=== PATIENT | male | born 1970 | race Caucasian/White ===

== ENCOUNTER → 2017-05-05 | Outpatient (REF) ==
[2017-05-05 09:49] LABS: MEAN CORPUSCULAR HEMOGLOBIN 30.5 pg (27.0-33.0); MEAN CORPUSCULAR HGB CONC 34.4 g/dl (32.0-36.5); MEAN CORPUSCULAR VOLUME 88.5 fl (80.0-96.0); RED CELL DISTRIBUTION WIDTH 12.9 % (11.5-14.5)
[2017-05-05 10:18] LABS: ALBUMIN 3.8 GM/DL (3.2-5.2); ALBUMIN/GLOBULIN RATIO 1.03 (1.00-1.93); ALKALINE PHOSPHATASE 80 U/L (45-117); ALT/SGPT 34 U/L (12-78); ANION GAP 6 MEQ/L (8-16); AST/SGOT 29 U/L (15-37); BILIRUBIN,TOTAL 0.9 MG/DL (0.2-1.0); BLOOD UREA NITROGEN 22 MG/DL (7-18); CARBON DIOXIDE LEVEL 29 MEQ/L (21-32); CHLORIDE LEVEL 105 MEQ/L (98-107); CHOLESTEROL LEVEL 208 MG/DL (<200); CREATININE FOR GFR 1.28 MG/DL (0.70-1.30); GLOMERULAR FILTRATION RATE > 60.0 (>60); GLUCOSE, FASTING 98 MG/DL (70-105); POTASSIUM SERUM 4.7 MEQ/L (3.5-5.1); SODIUM LEVEL 140 MEQ/L (136-145); TOTAL PROTEIN 7.5 GM/DL (6.4-8.2); TRIGLYCERIDES LEVEL 100 MG/DL (<150)
--- NOTE | 2017-05-06 05:07 | REP ---
Clinical: Annual employee health requirement . Comparison: 05/01/2016 . Technique: PA and lateral. Findings: The mediastinum and cardiac silhouette are normal. The lung edmonds are clear and without acute consolidation, effusion, or pneumothorax. The skeletal structures are intact and normal. Impression: 1. No acute cardiopulmonary process. Signed by Zach Goldberg MD 05/06/2017 04:58 A
== END ==
LOC: M LAB 08:35
PROVIDERS: ATTEND Family Medicine
DX: Z02.9 Encounter for administrative examinations, unspecified (principal)

== ENCOUNTER → 2018-05-08 | Outpatient (REF) ==
[2018-05-08 10:54] LABS: HEMATOCRIT 43.5 % (42.0-52.0); HEMOGLOBIN 15.2 g/dl (13.5-17.5); MEAN CORPUSCULAR HEMOGLOBIN 30.4 pg (27.0-33.0); MEAN CORPUSCULAR HGB CONC 34.9 g/dl (32.0-36.5); PLATELET COUNT, AUTOMATED 201 10^3/uL (150-450); RED CELL DISTRIBUTION WIDTH 12.6 % (11.5-14.5); WHITE BLOOD COUNT 8.4 10^3/uL (4.0-10.0)
[2018-05-08 11:18] LABS: ANION GAP 6 MEQ/L (8-16); BLOOD UREA NITROGEN 18 MG/DL (7-18); CALCIUM LEVEL 8.8 MG/DL (8.5-10.1); CARBON DIOXIDE LEVEL 32 MEQ/L (21-32); CHLORIDE LEVEL 107 MEQ/L (98-107); CHOLESTEROL LEVEL 211 MG/DL (<200); CHOLESTEROL RISK RATIO 4.137 (<5); CREATININE FOR GFR 1.24 MG/DL (0.70-1.30); GLOMERULAR FILTRATION RATE > 60.0 (>60); GLUCOSE, FASTING 99 MG/DL (70-100); HDL CHOLESTEROL 51 MG/DL (>40); LDL CHOLESTEROL 134 MG/DL (<100); NON-HDL-C 160 MG/DL; POTASSIUM SERUM 4.7 MEQ/L (3.5-5.1); PROSTATIC SPECIFIC AG MONITOR 1.71 NG/ML (< 4.0); SODIUM LEVEL 145 MEQ/L (136-145); TRIGLYCERIDES LEVEL 129 MG/DL (<150)
== END ==
LOC: M LAB 10:21
DX: Z00.00 Encounter for general adult medical examination without abnormal findings (principal)

== ENCOUNTER 2018-10-22 02:33 | Emergency (ER) | payer BC ==
[~2018-10-22] VITALS: Ht 193 cm; Wt 120.5 kg
[2018-10-22 02:34] VITALS: BP 139/81
[2018-10-22] MEDS ORDERED: guaiFENesin ER 600 MG TAB PO ONE (04:45)
== END 2018-10-22 05:00 | disposition home or self-care (01) ==
LOC: M ED 02:33
DX: J06.9 Acute upper respiratory infection, unspecified (principal)

== ENCOUNTER → 2018-10-23 | Outpatient (REF) | LOC: M LAB 14:35 | PROVIDERS: ATTEND Nurse Practitioner Adult Health | DX: Z00.00 Encounter for general adult medical examination without abnormal findings (principal) ==

== ENCOUNTER 2019-04-06 08:51 | Emergency (ER) | payer OTHER, BC ==
[~2019-04-06] VITALS: Ht 190.5 cm; Wt 111.4 kg
[2019-04-06] MEDS ORDERED: FLUV100T2 PO (09:02)
[2019-04-06] MEDS ORDERED: FLON1SPR NARES (09:02)
[2019-04-06] MEDS ORDERED: KETOROLAC 60 MG/2 ML VIAL (J1885) IM ONE (09:45)
--- NOTE | 2019-04-06 10:49 | REP ---
LUMBOSACRAL SPINE: Five views lumbosacral spine performed. There is mild compression and deformity of T12, which is unchanged since the prior chest radiograph 05/08/2018. There is no acute fracture or dislocation. Lumbar vertebral bodies are normal in height and are well-aligned. There is normal lumbar lordosis. There is no spondylolysis or spondylolisthesis. Disc spaces are well preserved. Posterior elements are intact. IMPRESSION: No acute fracture or dislocation. Old stable compression deformity of T12. Electronically Signed by Sarmad Gutiérrez MD 04/07/2019 04:40 P
[2019-04-06] MEDS ORDERED: NAPR-837 PO (12:38)
[2019-04-06 12:51] VITALS: BP 137/82
== END 2019-04-06 12:52 | disposition home or self-care (01) ==
LOC: M ED 08:51
DX: S30.0XXA Contusion of lower back and pelvis, initial encounter (principal); W10.8XXA Fall (on) (from) other stairs and steps, initial encounter; Y92.89 Other specified places as the place of occurrence of the external cause; Y99.0 Civilian activity done for income or pay; E78.5 Hyperlipidemia, unspecified
CPT/HCPCS: 72110; 96372; 99284; J1885

== ENCOUNTER → 2019-05-06 | Outpatient (REF) ==
[~2019-05-06] MED LIST: FLON1SPR NARES; FLUV100T2 PO; NAPR-837 PO
[2019-05-06 08:48] LABS: HEMOGLOBIN 15.1 g/dl (13.5-17.5); MEAN CORPUSCULAR HEMOGLOBIN 30.9 pg (27.0-33.0); MEAN CORPUSCULAR HGB CONC 34.3 g/dl (32.0-36.5); PLATELET COUNT, AUTOMATED 185 10^3/uL (150-450); RED BLOOD COUNT 4.89 10^6/uL (4.30-6.10); WHITE BLOOD COUNT 6.6 10^3/uL (4.0-10.0)
[2019-05-06 09:13] LABS: ALBUMIN 3.6 GM/DL (3.2-5.2); BILIRUBIN,TOTAL 0.6 MG/DL (0.2-1.0); CALCIUM LEVEL 8.9 MG/DL (8.5-10.1); CHOLESTEROL RISK RATIO 3.267 (<5); CREATININE FOR GFR 1.54 MG/DL (0.70-1.30); GLOMERULAR FILTRATION RATE 51.2 (>56); POTASSIUM SERUM 4.2 MEQ/L (3.5-5.1); TOTAL PROTEIN 6.9 GM/DL (6.4-8.2)
--- NOTE | 2019-05-06 12:51 | ECGEPIP ---
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
== END ==
LOC: M LAB 08:21
PROVIDERS: ATTEND Family Medicine
DX: Z00.00 Encounter for general adult medical examination without abnormal findings (principal)

== ENCOUNTER → 2019-05-19 | Outpatient (RCR) | payer OTHER | LOC: M PT 05-11 07:37 | PROVIDERS: ATTEND Physician Assistant | DX: S30.0XXD Contusion of lower back and pelvis, subsequent encounter (principal); X58.XXXD Exposure to other specified factors, subsequent encounter ==

== ENCOUNTER 2019-06-15 07:00 | Outpatient (RCR) | payer OTHER | END 2019-06-18 | LOC: M PT 07:00 | PROVIDERS: ATTEND Physician Assistant | DX: Z47.89 Encounter for other orthopedic aftercare (principal) ==

== ENCOUNTER 2019-07-06 07:00 | Outpatient (RCR) | payer OTHER | END 2019-07-19 | LOC: M PT 07:00 | PROVIDERS: ATTEND Physician Assistant | DX: S30.0XXD Contusion of lower back and pelvis, subsequent encounter (principal); X58.XXXD Exposure to other specified factors, subsequent encounter ==

== ENCOUNTER 2019-08-18 07:00 | Outpatient (RCR) | payer OTHER | END 2019-08-19 | LOC: M PT 07:00 | PROVIDERS: ATTEND Orthopaedic Surgery | DX: Z47.89 Encounter for other orthopedic aftercare (principal) ==

== ENCOUNTER 2019-09-15 07:00 | Outpatient (RCR) | payer OTHER | END 2019-09-17 | LOC: M PT 07:00 | PROVIDERS: ATTEND Orthopaedic Surgery | DX: Z47.89 Encounter for other orthopedic aftercare (principal) ==

== ENCOUNTER → 2020-05-12 | Outpatient (REF) ==
[2020-05-12 12:45] LABS: HEMATOCRIT 46.1 % (42.0-52.0); HEMOGLOBIN 15.6 g/dl (13.5-17.5); MEAN CORPUSCULAR HEMOGLOBIN 29.9 pg (27.0-33.0); MEAN CORPUSCULAR HGB CONC 33.8 g/dl (32.0-36.5); MEAN CORPUSCULAR VOLUME 88.5 fl (80.0-96.0); PLATELET COUNT, AUTOMATED 204 10^3/uL (150-450); RED BLOOD COUNT 5.21 10^6/uL (4.30-6.10); WHITE BLOOD COUNT 6.8 10^3/uL (4.0-10.0)
[2020-05-12 13:06] LABS: BLOOD UREA NITROGEN 17 MG/DL (7-18); CARBON DIOXIDE LEVEL 30 MEQ/L (21-32); CHLORIDE LEVEL 107 MEQ/L (98-107); CHOLESTEROL LEVEL 219 MG/DL (<200); CHOLESTEROL RISK RATIO 3.842 (<5); CREATININE FOR GFR 1.31 MG/DL (0.70-1.30); GLOMERULAR FILTRATION RATE > 60.0 (>56); GLUCOSE, FASTING 100 MG/DL (70-100); HDL CHOLESTEROL 57 MG/DL (>40); LDL CHOLESTEROL 146 MG/DL (<100); NON-HDL-C 162 MG/DL; POTASSIUM SERUM 4.5 MEQ/L (3.5-5.1); PROSTATIC SPECIFIC AG MONITOR 2.59 NG/ML (< 4.00); SODIUM LEVEL 140 MEQ/L (136-145); TRIGLYCERIDES LEVEL 79 MG/DL (<150)
--- NOTE | 2020-05-12 14:23 | ECGEPIP ---
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
== END ==
LOC: M LAB 11:53
PROVIDERS: ATTEND Nurse Practitioner Adult Health
DX: Z00.00 Encounter for general adult medical examination without abnormal findings (principal)

== ENCOUNTER → 2020-09-30 | Outpatient (CLI) | payer OTHER | LOC: M LABSMTC 08:20 | PROVIDERS: ATTEND Anesthesiology | DX: Z01.812 Encounter for preprocedural laboratory examination (principal); Z20.822 Contact with and (suspected) exposure to COVID-19 ==

== ENCOUNTER 2020-10-05 09:31 | Day surgery (SDC) | payer BC ==
[~2020-10-05] VITALS: Ht 193 cm; Wt 124.2 kg
[~2020-10-05 09:31] MED LIST changes: +NS 1,000 ML IV ONE
[2020-10-05] MEDS ORDERED: LIDOCAINE 2% 100MG/5ML SDV (FOR ANES.) As Ordered ONE (11:51)
[2020-10-05] MEDS ORDERED: propofoL 500 MG/50 ML VIAL As Ordered ONE (11:51)
--- NOTE | 2020-10-05 12:19 | ROOR ---
Patient Name: Shayan Antony Procedure Date: 10/05/2020 11:44 AM Date of : 1970 Age: 50 Room: [facility] Gender: Male Note Status: Finalized Procedure: Colonoscopy Indications: Screening for colorectal malignant neoplasm Providers: Hi Kingsley MD Referring MD: Mane Moya MD Requesting Provider: Medicines: Monitored Anesthesia Care Complications: No immediate complications. Procedure: Pre-Anesthesia Assessment: - Prior to the procedure, a History and Physical was performed, and patient medications and allergies were reviewed. The patient is competent. The risks and benefits of the procedure and the sedation options and risks were discussed with the patient. All questions were answered and informed consent was obtained. Patient identification and proposed procedure were verified by the physician, the nurse and the anesthesiologist in the procedure room. Mental Status Examination: alert and oriented. Airway Examination: normal oropharyngeal airway and neck mobility. Respiratory Examination: clear to auscultation. CV Examination: normal. Prophylactic Antibiotics: The patient does not require prophylactic antibiotics. Prior Anticoagulants: The patient has taken no previous anticoagulant or antiplatelet agents. ASA Grade Assessment: II - A patient with mild systemic disease. After reviewing the risks and benefits, the patient was deemed in satisfactory condition to undergo the procedure. The anesthesia plan was to use monitored anesthesia care (MAC). Immediately prior to administration of medications, the patient was re-assessed for adequacy to receive sedatives. The heart rate, respiratory rate, oxygen saturations, blood pressure, adequacy of pulmonary ventilation, and response to care were monitored throughout the procedure. The physical status of the patient was re-assessed after the procedure. The Colonoscope was introduced through the anus and advanced to the cecum, identified by appendiceal orifice and ileocecal valve. The colonoscopy was performed without difficulty. The patient tolerated the procedure well. The quality of the bowel preparation was good. The ileocecal valve, appendiceal orifice, and rectum were photographed. Scope insertion time was 3 minutes. Scope withdrawal time was 9 minutes. The total duration of the procedure was 12 minutes. Findings: The perianal and digital rectal examinations were normal. Three sessile polyps were found in the recto-sigmoid colon, transverse colon and ascending colon. The polyps were 3 to 5 mm in size. These polyps were removed with a cold snare. Resection and retrieval were complete. Verification of patient identification for the specimen was done by the physician and nurse using the patient's name, date and medical record number. Estimated blood loss was minimal. Non-bleeding external and internal hemorrhoids were found during retroflexion. The hemorrhoids were medium-sized. Impression: - Three 3 to 5 mm polyps at the recto-sigmoid colon, in the transverse colon and in the ascending colon, removed with a cold snare. Resected and retrieved. - Non-bleeding external and internal hemorrhoids. Recommendation: - Patient has a contact number available for emergencies. The signs and symptoms of potential delayed complications were discussed with the patient. Return to normal activities tomorrow. Written discharge instructions were provided to the patient. - High fiber diet. - Continue present medications. - Use fiber, for example Citrucel, Fibercon, Konsyl or Metamucil. - Await pathology results. - Repeat colonoscopy in 5 years for surveillance based on pathology results. - Telephone GI clinic for pathology results in 2 weeks. - Return to primary care physician. Procedure Code(s): --- Professional --- 61194, Colonoscopy, flexible; with removal of tumor(s), polyp(s), or other lesion(s) by snare technique Diagnosis Code(s): --- Professional --- Z12.11, Encounter for screening for malignant neoplasm of colon K63.5, Polyp of colon K64.8, Other hemorrhoids CPT copyright 2019 [employer]. All rights reserved. The codes documented in this report are preliminary and upon wire coating operator metal review may be revised to meet current compliance requirements. Hi Kingsley MD Hi Kingsley MD 10/05/2020 12:19:19 PM Electronically signed by Hi Kingsley MD Number of Addenda: 0 Note Initiated On: 10/05/2020 11:44 AM Estimated Blood Loss: Estimated blood loss was minimal.
[2020-10-05 12:35] VITALS: BP 123/83
== END 2020-10-05 12:42 | disposition home or self-care (01) ==
LOC: M OPP 09:31
PROVIDERS: ATTEND Internal Medicine Gastroenterology
DX: Z12.11 Encounter for screening for malignant neoplasm of colon (principal); K63.5 Polyp of colon; K64.8 Other hemorrhoids; Z79.899 Other long term (current) drug therapy

== ENCOUNTER → 2021-05-09 | Outpatient (CLI) | payer BC ==
[~2021-05-09] MED LIST changes: -NS 1,000 ML IV ONE
[2021-05-09 09:07] LABS: ALBUMIN 3.6 GM/DL (3.2-5.2); ALT/SGPT 38 U/L (12-78); BILIRUBIN,TOTAL 1.5 MG/DL (0.2-1.0); BLOOD UREA NITROGEN 14 MG/DL (7-18); CALCIUM LEVEL 9.2 MG/DL (8.5-10.1); CARBON DIOXIDE LEVEL 27 MEQ/L (21-32); CHLORIDE LEVEL 106 MEQ/L (98-107); CHOLESTEROL LEVEL 226 MG/DL (<200); CHOLESTEROL RISK RATIO 4.185 (<5); CREATININE FOR GFR 1.24 MG/DL (0.70-1.30); GLOMERULAR FILTRATION RATE > 60.0 (>56); GLUCOSE, FASTING 102 MG/DL (70-100); HDL CHOLESTEROL 54 MG/DL (>40); LDL CHOLESTEROL 138 MG/DL (<100); NON-HDL-C 172 MG/DL; POTASSIUM SERUM 5.1 MEQ/L (3.5-5.1); PROSTATIC SPECIFIC AG MONITOR 3.91 NG/ML (< 4.00); SODIUM LEVEL 139 MEQ/L (136-145); TOTAL PROTEIN 7.7 GM/DL (6.4-8.2); TRIGLYCERIDES LEVEL 171 MG/DL (<150)
== END ==
LOC: M LAB 07:21
PROVIDERS: ATTEND Family Medicine
DX: Z12.5 Encounter for screening for malignant neoplasm of prostate (principal); E78.5 Hyperlipidemia, unspecified

== ENCOUNTER → 2021-05-09 | Outpatient (REF) ==
[2021-05-09 08:27] LABS: HEMATOCRIT 45.5 % (42.0-52.0); HEMOGLOBIN 15.5 g/dl (13.5-17.5); MEAN CORPUSCULAR HEMOGLOBIN 30.5 pg (27.0-33.0); MEAN CORPUSCULAR HGB CONC 34.1 g/dl (32.0-36.5); MEAN CORPUSCULAR VOLUME 89.6 fl (80.0-96.0); PLATELET COUNT, AUTOMATED 221 10^3/uL (150-450); RED BLOOD COUNT 5.08 10^6/uL (4.30-6.10); WHITE BLOOD COUNT 10.8 10^3/uL (4.0-10.0)
[2021-05-09 08:31] LABS: APPEARANCE, URINE CLEAR (CLEAR); BACTERIA, URINE AUTO NEGATIVE (NEGATIVE); BILIRUBIN, URINE AUTO NEGATIVE (NEGATIVE); BLOOD, URINE BLOOD NEGATIVE (NEGATIVE); COLOR, URINE YELLOW (YELLOW); GLUCOSE, URINE (UA) AUTO NEGATIVE (NEGATIVE); KETONE, URINE AUTO NEGATIVE (NEGATIVE); LEUKOCYTE ESTERASE, URINE AUTO NEGATIVE (NEGATIVE); MUCUS, URINE SMALL (NEGATIVE); NITRITE, URINE AUTO NEGATIVE (NEGATIVE); PROTEIN, URINE AUTO NEGATIVE (NEGATIVE); RBC, URINE AUTO 0 /HPF (0-3); SPECIFIC GRAVITY URINE AUTO 1.017 (1.002-1.035); SQUAMOUS EPITHELIAL CELL UR AU 0 /HPF (0-6); UROBILINOGEN, URINE AUTO 0.2 mg/dL (0.0-2.0); WBC, URINE AUTO 1 /HPF (0-3)
[2021-05-09 09:06] LABS: BLOOD UREA NITROGEN 14 MG/DL (7-18); CARBON DIOXIDE LEVEL 27 mmol/L (20-29); CHLORIDE LEVEL 106 MEQ/L (98-107); CREATININE FOR GFR 1.24 MG/DL (0.70-1.30); GLOMERULAR FILTRATION RATE > 60.0 (>56); GLUCOSE, FASTING 102 MG/DL (70-100); POTASSIUM SERUM 5.1 MEQ/L (3.5-5.1); SODIUM LEVEL 139 MEQ/L (136-145)
[2021-05-09 09:07] LABS: CALCIUM LEVEL 9.2 MG/DL (8.5-10.1)
--- NOTE | 2021-05-09 14:09 | ECGEPIP ---
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
== END ==
LOC: M LAB 07:17
PROVIDERS: ATTEND Family Medicine
DX: Z02.89 Encounter for other administrative examinations (principal)

== ENCOUNTER → 2021-11-27 | Outpatient (CLI) | payer BC ==
[~2021-11-27] MED LIST changes: -FLUV100T2 PO; +FLUV100T25 PO
[2021-11-29 23:07] LABS: PSA TOTAL 3.9 ng/mL (0.0-4.0)
== END ==
LOC: M LAB 16:22
PROVIDERS: ATTEND Urology
DX: R97.20 Elevated prostate specific antigen [PSA] (principal)

== ENCOUNTER → 2022-05-16 | Outpatient (CLI) | payer BC | LOC: M ONCR 13:16 | PROVIDERS: ATTEND General Practice | DX: C61 Malignant neoplasm of prostate (principal); Z79.51 Long term (current) use of inhaled steroids; Z79.899 Other long term (current) drug therapy ==

== ENCOUNTER → 2022-05-24 | Outpatient (REF) ==
[2022-05-24 10:54] LABS: APPEARANCE, URINE MANUAL HAZY (CLEAR); COLOR, URINE MANUAL YELLOW (YELLOW)
[2022-05-24 10:56] LABS: HEMATOCRIT 42.4 % (42.0-52.0); HEMOGLOBIN 14.7 g/dl (13.5-17.5); MEAN CORPUSCULAR HEMOGLOBIN 30.5 pg (27.0-33.0); MEAN CORPUSCULAR HGB CONC 34.7 g/dl (32.0-36.5); PLATELET COUNT, AUTOMATED 220 10^3/uL (150-450); RED BLOOD COUNT 4.82 10^6/uL (4.30-6.10); WHITE BLOOD COUNT 7.7 10^3/uL (4.0-10.0)
[2022-05-24 11:00] LABS: BILIRUBIN, URINE MANUAL NEGATIVE (NEGATIVE); BLOOD URINE MANUAL NEGATIVE (NEGATIVE); GLUCOSE, URINE (UA) MANUAL NEGATIVE (NEGATIVE); KETONE, URINE MANUAL NEGATIVE (NEGATIVE); LEUKOCYTE ESTERASE, URINE MAN TRACE (NEGATIVE); NITRITE, URINE MANUAL NEGATIVE (NEGATIVE); PROTEIN, URINE MANUAL TRACE mg/dL (NEGATIVE); UROBILINOGEN, URINE MANUAL NORMAL (NORMAL)
[2022-05-24 11:04] LABS: BACTERIA, URINE SMALL AMOUNT; HYALINE CAST, URINE NONE SEEN /lpf (0-1); RBC, URINE 0-1 /hpf (0-3); SQUAMOUS EPITHELIAL CELL URINE SMALL AMOUNT /hpf (SMALL AMT)
[2022-05-24 11:05] LABS: MUCUS, URINE MOD AMOUNT (NEGATIVE)
[2022-05-24 11:39] LABS: CALCIUM LEVEL 8.9 MG/DL (8.5-10.1); CHOLESTEROL RISK RATIO 3.754 (<5); CREATININE FOR GFR 1.44 MG/DL (0.70-1.30); GLOMERULAR FILTRATION RATE 54.6 (>56); POTASSIUM SERUM 4.3 MEQ/L (3.5-5.1)
== END ==
LOC: M RAD 10:09
PROVIDERS: ATTEND Family Medicine
DX: Z00.00 Encounter for general adult medical examination without abnormal findings (principal)

== ENCOUNTER → 2022-08-19 | Outpatient (REF) | payer BC ==
[~2022-08-19] MED LIST changes: +BICA50TA9 PO
== END ==
LOC: M LAB REF 11:56
PROVIDERS: ATTEND General Practice
DX: C61 Malignant neoplasm of prostate (principal)

== ENCOUNTER → 2022-08-26 | Outpatient (CLI) | payer BC ==
[~2022-08-26] MED LIST changes: +GABA-282 PO; +LEUPROLIDE 45MG SYRINGE KIT (LUPRON DEPOT) (FOR ONCOLOGY) IM ONE; +PERCOCET PO; +TOBRSUS8 OD; +VALA1TAB5 PO
== END ==
LOC: M ONCR 10:41
PROVIDERS: ATTEND General Practice
DX: C61 Malignant neoplasm of prostate (principal)
CPT/HCPCS: 96372; J9217

== ENCOUNTER → 2022-09-18 | Outpatient (CLI) | payer BC ==
[~2022-09-18] VITALS: Ht 188 cm; Wt 118.6 kg
[~2022-09-18] MED LIST changes: +CIPR750T2 PO; -LEUPROLIDE 45MG SYRINGE KIT (LUPRON DEPOT) (FOR ONCOLOGY) IM ONE; +LIDOCAINE 2% MDV 20ML VIAL XX ONE; +LIDOCAINE VISCOUS 2% SOLN 15ML UDC XX ONE; +LORA1TAB4 PO
[2022-09-18 14:44] VITALS: BP 130/82
[2022-09-18 16:01] VITALS: BP 144/82
== END ==
LOC: M ONCR 14:19
PROVIDERS: ATTEND General Practice
DX: C61 Malignant neoplasm of prostate (principal)
CPT/HCPCS: 55874; 55876; A4648; C1889

== ENCOUNTER → 2022-10-17 | Outpatient (RCR) | payer BC ==
[~2022-10-17] MED LIST changes: -LIDOCAINE 2% MDV 20ML VIAL XX ONE; -LIDOCAINE VISCOUS 2% SOLN 15ML UDC XX ONE
== END ==
LOC: M ONCR 09-26 13:27
PROVIDERS: ATTEND General Practice
DX: C61 Malignant neoplasm of prostate (principal)

== ENCOUNTER 2022-11-14 10:30 | Outpatient (RCR) | payer BC ==
[~2022-11-14 10:30] MED LIST changes: +LORA1TAB23 PO; -LORA1TAB4 PO
== END 2022-11-16 ==
LOC: M ONCR 10:30
PROVIDERS: ATTEND General Practice
DX: C61 Malignant neoplasm of prostate (principal)

== ENCOUNTER → 2023-02-11 | Outpatient (CLI) | payer BC ==
[2023-02-11 17:08] LABS: PROSTATIC SPECIFIC AG MONITOR 0.13 NG/ML (< 4.00)
== END ==
LOC: M ONCR 16:14
PROVIDERS: ATTEND General Practice
DX: C61 Malignant neoplasm of prostate (principal)

== ENCOUNTER → 2023-02-13 | Outpatient (CLI) | payer BC | LOC: M ONCR 08:45 | PROVIDERS: ATTEND General Practice | DX: C61 Malignant neoplasm of prostate (principal); E29.1 Testicular hypofunction; Z71.2 Person consulting for explanation of examination or test findings; Z79.51 Long term (current) use of inhaled steroids; Z79.899 Other long term (current) drug therapy; Z92.3 Personal history of irradiation ==

== ENCOUNTER → 2023-05-24 | Outpatient (REF) ==
[2023-05-24 12:17] LABS: MEAN CORPUSCULAR HEMOGLOBIN 30.8 pg (27.0-33.0); MEAN CORPUSCULAR HGB CONC 34.1 g/dl (32.0-36.5); MEAN CORPUSCULAR VOLUME 90.3 fl (80.0-96.0); PLATELET COUNT, AUTOMATED 197 10^3/uL (150-450); RED BLOOD COUNT 4.54 10^6/uL (4.30-6.10); WHITE BLOOD COUNT 9.3 10^3/uL (4.0-10.0)
[2023-05-24 12:42] LABS: PROSTATIC SPECIFIC AG MONITOR 0.36 NG/ML (< 4.00)
[2023-05-24 12:43] LABS: BLOOD UREA NITROGEN 15 MG/DL (9-23); CALCIUM LEVEL 9.1 MG/DL (8.5-10.1); CARBON DIOXIDE LEVEL 30 MMOL/L (20-31); CHLORIDE LEVEL 104 MMOL/L (98-107); CHOLESTEROL LEVEL 219 MG/DL (<200); CREATININE FOR GFR 1.16 MG/DL (0.70-1.30); GLOMERULAR FILTRATION RATE > 60.0 (>56); GLUCOSE, FASTING 102 MG/DL (60-100); HDL CHOLESTEROL 54.7 MG/DL (>40); LDL CHOLESTEROL 140.3 MG/DL (<100); NON-HDL-C 164.3 MG/DL; POTASSIUM SERUM 4.4 MMOL/L (3.5-5.1); SODIUM LEVEL 140 MMOL/L (136-145); TRIGLYCERIDES LEVEL 120 MG/DL (<150)
== END ==
LOC: M EKG 11:47
PROVIDERS: ATTEND Family Medicine
DX: Z02.89 Encounter for other administrative examinations (principal)

== ENCOUNTER → 2023-08-18 | Outpatient (CLI) | payer BC ==
[2023-08-17 15:22] LABS: PROSTATIC SPECIFIC AG MONITOR 0.55 NG/ML (< 4.00)
== END ==
LOC: M ONCR 07:57
PROVIDERS: ATTEND General Practice
DX: C61 Malignant neoplasm of prostate (principal); Z71.2 Person consulting for explanation of examination or test findings; Z79.51 Long term (current) use of inhaled steroids; Z79.899 Other long term (current) drug therapy; Z92.29 Personal history of other drug therapy; Z92.3 Personal history of irradiation
CPT/HCPCS: 36415; 84153; 84403; G0463

== ENCOUNTER → 2023-11-24 | Outpatient (REF) ==
[2023-11-24 10:08] LABS: HEMATOCRIT 43.1 % (42.0-52.0); HEMOGLOBIN 15.2 g/dl (13.5-17.5); MEAN CORPUSCULAR HEMOGLOBIN 31.1 pg (27.0-33.0); MEAN CORPUSCULAR HGB CONC 35.3 g/dl (32.0-36.5); MEAN CORPUSCULAR VOLUME 88.3 fl (80.0-96.0); PLATELET COUNT, AUTOMATED 187 10^3/uL (150-450); RED BLOOD COUNT 4.88 10^6/uL (4.30-6.10); WHITE BLOOD COUNT 18.6 10^3/uL (4.0-10.0)
[2023-11-24 10:08] LABS: APPEARANCE, URINE CLEAR (CLEAR); BACTERIA, URINE AUTO 1+ (NEGATIVE); BILIRUBIN, URINE AUTO NEGATIVE (NEGATIVE); BLOOD, URINE BLOOD NEGATIVE (NEGATIVE); COLOR, URINE YELLOW (YELLOW); GLUCOSE, URINE (UA) AUTO NEGATIVE (NEGATIVE); KETONE, URINE AUTO NEGATIVE (NEGATIVE); LEUKOCYTE ESTERASE, URINE AUTO NEGATIVE (NEGATIVE); MUCUS, URINE SMALL (NEGATIVE); NITRITE, URINE AUTO NEGATIVE (NEGATIVE); PROTEIN, URINE AUTO 1+ mg/dL (NEGATIVE); RBC, URINE AUTO 2 /HPF (0-3); SPECIFIC GRAVITY URINE AUTO 1.025 (1.002-1.035); SQUAMOUS EPITHELIAL CELL UR AU 0 /HPF (0-6); WBC, URINE AUTO 1 /HPF (0-3)
[2023-11-24 10:35] LABS: ALBUMIN 3.5 G/DL (3.2-5.2); ALKALINE PHOSPHATASE 100 U/L (46-116); ALT/SGPT 36 U/L (7.0-40); AST/SGOT 30 U/L (<34); BILIRUBIN,TOTAL 1.4 MG/DL (0.3-1.2); BLOOD UREA NITROGEN 11 MG/DL (9-23); CALCIUM LEVEL 8.5 MG/DL (8.5-10.1); CARBON DIOXIDE LEVEL 26 MMOL/L (20-31); CHLORIDE LEVEL 104 MMOL/L (98-107); CHOLESTEROL LEVEL 185 MG/DL (<200); CHOLESTEROL RISK RATIO 3.23 (<5); CREATININE FOR GFR 1.12 MG/DL (0.70-1.30); GLOMERULAR FILTRATION RATE > 60.0 (>56); GLUCOSE, FASTING 110 MG/DL (60-100); HDL CHOLESTEROL 57.1 MG/DL (>40); LDL CHOLESTEROL 111.1 MG/DL (<100); NON-HDL-C 127.9 MG/DL; POTASSIUM SERUM 3.6 MMOL/L (3.5-5.1); SODIUM LEVEL 138 MMOL/L (136-145); TOTAL PROTEIN 6.9 G/DL (5.7-8.2); TRIGLYCERIDES LEVEL 84 MG/DL (<150)
== END ==
LOC: M RAD 09:21
PROVIDERS: ATTEND Family Medicine
DX: Z02.89 Encounter for other administrative examinations (principal)

== ENCOUNTER → 2024-02-16 | Outpatient (CLI) | payer BC ==
[2024-02-15 16:38] LABS: PROSTATIC SPECIFIC AG MONITOR 0.83 NG/ML (< 4.00)
[~2024-02-16] MED LIST changes: +BICA50TA4 PO; -BICA50TA9 PO; +FLOM0.4C39 PO
== END ==
LOC: M ONCR 02-15 15:45
PROVIDERS: ATTEND General Practice
DX: C61 Malignant neoplasm of prostate (principal); R30.0 Dysuria; Z92.3 Personal history of irradiation; Z92.29 Personal history of other drug therapy; Z79.899 Other long term (current) drug therapy
CPT/HCPCS: 36415; 84153; 84403; G0463

== ENCOUNTER → 2024-08-16 | Outpatient (CLI) | payer BC ==
[~2024-08-16] MED LIST changes: +GABA-1172 PO; -GABA-282 PO
== END ==
LOC: M ONCR 16:40
PROVIDERS: ATTEND General Practice
DX: C61 Malignant neoplasm of prostate (principal)

== ENCOUNTER → 2024-08-17 | Outpatient (CLI) | payer BC | LOC: M ONCR 10:36 | PROVIDERS: ATTEND General Practice | DX: C61 Malignant neoplasm of prostate (principal); Z79.51 Long term (current) use of inhaled steroids; Z79.899 Other long term (current) drug therapy; Z92.3 Personal history of irradiation | CPT/HCPCS: 36415; 84153; G0463 ==

== ENCOUNTER 2025-01-30 08:46 | Day surgery (SDC) | payer BC ==
[~2025-01-30] VITALS: Ht 190.5 cm; Wt 120.2 kg
[~2025-01-30 08:46] MED LIST changes: -FLOM0.4C39 PO; +FLUV100T20 PO; -FLUV100T25 PO; +LR 1,000 ML IV SCH; +TAMS-18 PO
[2025-01-30] MEDS ORDERED: MIDAZOLAM INJ 2 MG/2 ML VIAL As Ordered ONE (09:43)
[2025-01-30] MEDS: TETRACAINE 0.5% OPHTH SOLN 4ML OS SCH (10:08)
[2025-01-30] MEDS: PHENYLEPHRINE 2.5% OPHTH SOL 2ML OS SCH (10:08)
[2025-01-30] MEDS: CYCLOPENTOLATE 1% OPHTH SOLN 2 ML BTL OS SCH (10:08)
[2025-01-30] MEDS: FLURBIPROFEN 0.03% OPHTH SOLN 2.5 ML OS SCH (10:08)
[2025-01-30] MEDS: LIDOCAINE 1% SDV 5 ML VIAL As Ordered ONE (11:29)
[2025-01-30] MEDS: CEFUROXIME 1 MG/0.1 ML INTRACAMERAL INJ As Ordered ONE (11:29)
[2025-01-30 11:40] VITALS: BP 119/80; TEMP 96.9; O2SAT 98
== END 2025-01-30 11:59 | disposition home or self-care (01) ==
LOC: M SDC 08:46
PROVIDERS: ATTEND Ophthalmology
DX: H25.12 Age-related nuclear cataract, left eye (principal); F42.9 Obsessive-compulsive disorder, unspecified; Z79.899 Other long term (current) drug therapy; Z85.46 Personal history of malignant neoplasm of prostate; Z90.49 Acquired absence of other specified parts of digestive tract
CPT/HCPCS: 66984; J0697; J2250; J3010; V2632